=== PATIENT | female | born 2000 | race Caucasian/White ===

== ENCOUNTER → 2023-06-30 09:10 | Outpatient (BNVA) | payer BC, SELFPAY | PROVIDERS: Visit Provider Nurse Practitioner Women's Health | DX: E11.9 Type 2 diabetes mellitus without complications (principal); D68.9 Coagulation defect, unspecified; Z13.220 Encounter for screening for lipoid disorders | CPT/HCPCS: 80061; 83036; 83525; 84146; 84402; 84439; 84443; 84481 ==

== ENCOUNTER → 2023-08-30 10:03 | Outpatient (BNVA) | payer BC, SELFPAY | PROVIDERS: Visit Provider Family Medicine | DX: B08.1 Molluscum contagiosum (principal); Z72.51 High risk heterosexual behavior | CPT/HCPCS: 87806 ==

== ENCOUNTER → 2023-09-01 12:10 | Outpatient (BNVA) | payer BC, SELFPAY | PROVIDERS: PCP Family Medicine; Visit Provider Family Medicine | DX: E11.9 Type 2 diabetes mellitus without complications (principal); B08.1 Molluscum contagiosum | CPT/HCPCS: 80053 ==

== ENCOUNTER → 2023-09-02 10:42 | Outpatient (BNVA) | payer BC, SELFPAY | PROVIDERS: PCP Family Medicine; Visit Provider Physician Assistant | DX: M25.562 Pain in left knee (principal); S83.242A Other tear of medial meniscus, current injury, left knee, initial encounter; X58.XXXA Exposure to other specified factors, initial encounter | CPT/HCPCS: 73560; 73565 ==

== ENCOUNTER 2023-09-27 06:00 | Outpatient (RCR) | payer BC, SELFPAY | END 2023-09-30 23:59 | disposition home or self-care (01) | LOC: MPT 06:00 | PROVIDERS: PCP Family Medicine; Visit Provider Family Medicine | DX: S83.242D Other tear of medial meniscus, current injury, left knee, subsequent encounter (principal); X58.XXXD Exposure to other specified factors, subsequent encounter | CPT/HCPCS: 97161 ==

== ENCOUNTER 2023-10-01 06:00 | Outpatient (RCR) | payer BC, SELFPAY | END 2023-10-31 23:59 | disposition home or self-care (01) | LOC: MPT 06:00 | PROVIDERS: PCP Family Medicine; Visit Provider Family Medicine | DX: S83.242D Other tear of medial meniscus, current injury, left knee, subsequent encounter (principal); X58.XXXD Exposure to other specified factors, subsequent encounter | CPT/HCPCS: 97110; G0283 ==

== ENCOUNTER 2023-10-06 06:56 | Outpatient (CLI) | payer BC, SELFPAY ==
--- NOTE | 2023-10-06 07:15 | MR_ITS ---
WS: [id number] MRI LEFT KNEE NONCONTRAST TECHNIQUE: Axial PD, coronal PD fat sat, coronal PD, sagittal PD, and sagittal PD fat-sat images obta ined. CLINICAL INFORMATION: knee pain COMPARISON: None. FINDINGS: Distal quadriceps and patella tendons are intact. Hypertrophic patella. ACL and PCL are intact. Tiny suprapatellar effusion. Mild chondromalacia patella. Lateral subluxation of the patella likely positi onal. Normal medial and lateral patellar retinaculum. Normal appearing trochlear groove. Small amount of prepatellar soft tissue edema. Medial and lateral collateral ligaments appear intact. Normal popl iteal fossa. No acute appearing meniscal tears. IMPRESSION: 1. ACL and PCL appear intact. 2. Mild chronic thinning of the medial meniscus. No acute appearing meniscal tears. 3. Medial and lateral collateral ligaments appear intact. 4. Mild chondromalacia patella. Small amount of prepatellar soft tissue edema. 5. Tiny suprapatellar effusion. Outbridge grading: grade II: blister-like swelling/fraying of articular cartilage extending to surfac e
== END 2023-10-06 06:57 | disposition home or self-care (01) ==
LOC: RAD 06:57
PROVIDERS: PCP Family Medicine; Visit Provider Physician Assistant
DX: M25.562 Pain in left knee (principal)
CPT/HCPCS: 36415; 73721; 82044; 83036

== ENCOUNTER 2023-10-13 08:47 | Outpatient (CLI) | payer BC, SELFPAY ==
[2023-10-13 09:54] LABS: Alanine Aminotransferase 32 U/L (0-33); Albumin Level 3.8 g/dL (3.5-5.2); Alkaline Phosphatase 56 U/L (35-105); Anion Gap 14.6 (5-19); Aspartate Amino Transferase 17 U/L (0-32); Blood Urea Nitrogen 12 mg/dL (6-20); Carbon Dioxide 24 mmol/L (22-29); Chloride 103 mmol/L (98-107); Chol HDL Ratio 7.82 mg/dL (0.0-4.40); Cholesterol 266 mg/dL (0-200); Globulin 2.9 g/dL (1.3-4.6); Glomerular Filtration Rate 155.7 mL/min (90-130); Glucose 268 mg/dL (65-115); HDL Cholesterol 34 mg/dL (60-100); Osmolality Calculated 293 mOsm/kg (285-295); Potassium 4.6 mmol/L (3.5-5.1); Sodium 137 mmol/L (136-145); Total Bilirubin 0.3 mg/dL (0.15-1.2); Total Protein 6.7 g/dL (6.6-8.7); Triglycerides 651 mg/dL (0-150)
[2023-10-13 10:19] LABS: LDL Cholesterol Direct 121 mg/dL (0-100)
== END 2023-10-13 08:48 | disposition home or self-care (01) ==
LOC: LAB 08:50
PROVIDERS: PCP Family Medicine; Visit Provider Internal Medicine
DX: E11.9 Type 2 diabetes mellitus without complications (principal)
CPT/HCPCS: 36415; 80053; 80061; 83721

== ENCOUNTER → 2024-02-23 15:55 | Outpatient (BNVA) | payer BC, SELFPAY | PROVIDERS: PCP Family Medicine; Visit Provider Family Medicine | DX: R23.8 Other skin changes (principal) | CPT/HCPCS: 88305 ==

== ENCOUNTER → 2024-03-17 09:29 | Outpatient (BNVA) | payer BC, SELFPAY | PROVIDERS: PCP Family Medicine; Visit Provider Physician Assistant | DX: M23.92 Unspecified internal derangement of left knee (principal); M22.42 Chondromalacia patellae, left knee | CPT/HCPCS: 73560; 73565 ==

== ENCOUNTER 2024-07-27 01:45 | Emergency (ER) | payer BC, SELFPAY ==
[2024-07-27] VITALS (9 sets, daily range): BP systolic 104–158; BP diastolic 53–106; PULSE 75–113; RESP 14–18; TEMP 36.7; O2SAT 93–100; BMI 36.0
--- NOTE | 2024-07-27 02:22 | W.ED.ABDPA2 ---
HPI - Abdominal Pain General: Chief Complaint: Abdominal Pain Stated Complaint: ABD Pain to Back Time Seen by Provider: 07/27/24 02:00 History of Present Illness: 24-year-old female presents emergency room with right lower quadrant and right flank pain. This started a few days ago but became much worse tonight. She has had some nausea but no vomiting. She is tearful with pain on presentation. Slightly tachycardic. No known fevers. No chest pain. No shortness of breath. No dysuria. Related Data Date of Last Menstrual Period: 07/18/24 Home Medications Medication Instructions Recorded Confirmed insulin lispro 200 unit/mL (3 mL) 20 unit SUBCUT TID 08/30/23 07/27/24 subcutaneous pen (Humalog KwikPen U-200 Insulin) diphenhydramine HCl 25 mg capsule 25 mg PO TID PRN allergies 07/27/24 07/27/24 (Benadryl) Previous Rx's Medication Instructions Recorded blood-glucose meter,continuous #1 ea 07/02/23 (Dexcom G7 Welding Operator) fenofibrate 150 mg capsule 150 mg PO DAILY #30 caps 07/02/23 icosapent ethyl 1 gram capsule 2 g (2 x 1 gram) PO BID #60 caps 07/02/23 (Vascepa) insulin glargine 100 unit/mL (3 60 unit (0.6 mL) SUBCUT DAILY #18 07/02/23 mL) subcutaneous pen (Lantus mL Solostar U-100 Insulin) pioglitazone 30 mg tablet (Actos) 30 mg PO DAILY #30 tabs 07/02/23 blood-glucose sensor (Dexcom G7 #3 ea 07/12/24 Sensor device) cefdinir 300 mg capsule 300 mg PO BID 10 days #20 caps 07/27/24 diclofenac sodium 50 mg 50 mg PO BID PRN pain #14 tabs 07/27/24 tablet,delayed release ondansetron 8 mg disintegrating 8 mg PO Q6H #14 tabs 07/27/24 tablet Allergies Allergy/AdvReac Type Severity Reaction Status Date / Time No Known Allergies Allergy Verified 07/27/24 01:58 Review of Systems Narrative: Constitutional symptoms: Negative except as documented in HPI. Skin symptoms: Negative except as documented in HPI. Eye symptoms: Negative except as documented in HPI. ENMT symptoms: Negative except as documented in HPI. Respiratory symptoms: Negative except as documented in HPI. Cardiovascular symptoms: Negative except as documented in HPI. Gastrointestinal symptoms: Negative except as documented in HPI. Genitourinary symptoms: Negative except as documented in HPI. Musculoskeletal symptoms: Negative except as documented in HPI. Neurologic symptoms: Negative except as documented in HPI. Psychiatric symptoms: Negative except as documented in HPI. Endocrine symptoms: Negative except as documented in HPI. PFSH ED PFSH: Medical History Type 2 diabetes mellitus Uncontrolled diabetes mellitus Surgical History History of placement of ear tubes History of surgery on arm Family History Grandfather High cholesterol Hypertension Stroke Diabetes Grandmother Hypertension Diabetes Other Thyroid disease Denies family history of Alzheimer's dementia Cervical cancer Liver disease Colon cancer Ovarian cancer CAD (coronary artery disease) Aneurysm Autoimmune disease Clotting disorder Dementia TIA (transient ischemic attack) Heart disease Psychiatric illness Chronic kidney disease (CKD) Breast cancer Anesthesia complication Bleeding disorder Cancer Uterine cancer Social History Smoking and tobacco/nicotine status: never used tobacco/nicotine Alcohol intake: never Substance/Drug Use: never Lives independently: Yes Marital status: Number of children: 0 Current occupational status: employed Current occupation: Palliative Care Nurse [employer] Special pooja needs: No Agree to transfusion: Yes Female Reproductive History: Date of last menstrual period: 07/18/24 Physical Exam Narrative: EXAM NARRATIVE: General: Alert, no acute distress. Skin: Warm, dry. Head: Normocephalic, atraumatic. Neck: Supple, trachea midline. Eye: Extraocular movements are intact. Ears, nose, mouth and throat: Tacky oral mucosa Cardiovascular: Regular, Normal peripheral perfusion. Respiratory: Lungs are clear to auscultation, respirations are non-labored, breath sounds are equal, Symmetrical chest wall expansion. Gastrointestinal: Soft, moderate right lower quadrant and right flank pain, Non distended Musculoskeletal: Normal ROM, no deformity. Neurological: Alert and oriented, No focal neurological deficit observed. Psychiatric: Cooperative, appropriate mood & affect. Course Vital Signs: Vital signs: Vital Signs Temperature 98.1 F 07/27/24 01:55 Pulse Rate 85 07/27/24 08:35 Respiratory Rate 16 07/27/24 06:30 Blood Pressure 111/62 07/27/24 08:35 Pulse Oximetry 99 07/27/24 08:35 Oxygen Delivery Me thod Room Air 07/27/24 04:00 MDM - Abdominal Pain Medical Decision Making Medical decision making: Differential diagnosis for this patient with right lower quadrant abdominal pain including but not limited to and based on the above HPI, review of systems and physical exam: Ureterolithiasis. Urinary tract infection. Appendicitis. colitis. small bowel obstruction. Crohn's flare. Pancreatitis. Cholelithiasis or cholecystitis. Hepatitis. Diverticulitis. Constipation. ovarian cyst. ovarian torsion Workup: Orders were placed to evaluate differential diagnosis based on the above differential, HPI and exam: Lab Review: Laboratory results were reviewed and interpreted by myself the emergency room physician. No leukocytosis. No anemia. No renal failure. Sodium is little low at 132. Urine does not appear very infected. Glucose is elevated at 350. Lactic acid is not elevated. Anion gap is mildly elevated at 21. I reviewed the patient's medical record CT of the abdomen pelvis shows signs of cystitis and ureteritis. There is some concern for a heterogenous appearance of the spleen. An ultrasound was recommended. Reexamination: Patient remained stable. No increased work of breathing. No altered mental status. No focal motor deficits. Assessment and plan: Urinary tract infection Ureteritis Cystitis Hyperglycemia Dehydration ?2 L normal saline bolus, 10 units IV insulin, IV Rocephin, IV Toradol and IV Dilaudid. IV Zofran. -Ultrasound has been ordered to evaluate the spleen. Patient care transitioned to Dr. Miller at shift change. Lab Data 07/27/24 02:20 07/27/24 02:20 Labs/Radiology: Radiology Impressions Abdomen/Pelvis CT 07/27/24 02:50 IMPRESSION: 1. Urinary bladder demonstrates a diffusely thickened bladder wall. This is concerning for acute cystitis. Recommend correlation with urinalysis. 2. The bilateral ureters demonstrate mild prominence, more noticeable distally, with questionable ureteral wall thickening and mild surrounding stranding. In the setting of diffuse urinary bladder wall thickening, this likely represents ascending bilateral ureteritis. 3. 4.5 cm left adnexal cyst. This is likely an incidental finding. 4. Heterogeneous appearance of the spleen, with questionable appearance of numerous hypoechoic masses. This may be secondary to phase of contrast. Recommend further nonemergent evaluation, starting with dedicated ultrasound of the spleen. MRI may subsequently be indicated depending on results. Recommend correlation for point tenderness of the area of the spleen. 5. Liver is enlarged, measuring up to 27.0 cm in craniocaudal dimension. No suspicious hepatic masses. ADDENDUM: 07/27/24 0341 ADDENDUM: THIS REPORT CONTAINS FINDINGS THAT MAY BE CRITICAL TO PATIENT CARE. The findings were verbally communicated via telephone conference with Dr. Magaña at 3:40 AM CDT on 07/27/2024. The findings were acknowledged and understood. Abdomen Ultrasound 07/27/24 05:03 IMPRESSION: 1. Small nonspecific hyperechoic focus within the spleen which may represent hemangioma. Remainder of the spleen without sonographic abnormality. 2. Given the CT and ultrasound findings, correlation with underlying hematologic malignancies and follow-up MRI of the abdomen should be obtained for definitive assessment. Laboratory Results WBC 10.68 10^3/uL (3.29-11.43) 07/27/24 02:20 RBC 5.43 10^6/uL (3.85-5.65) 07/27/24 02:20 Hgb 15.30 g/dL (11.27-16.99) 07/27/24 02:20 Hct 45.3 % (36-47) 07/27/24 02:20 MCV 83.4 fl (85-98) L 07/27/24 02:20 MCH 28.2 pg (27-33) 07/27/24 02:20 MCHC 33.8 g/dL (30-55) 07/27/24 02:20 RDW 12.6 % (12.1-15.1) 07/27/24 02:20 Plt Count 275 10^3/cmm (157-399) 07/27/24 02:20 MPV 10.6 fL (7.4-10.4) H 07/27/24 02:20 Neut % (Auto) 77.4 % 07/27/24 02:20 Lymph % (Auto) 12.5 % 07/27/24 02:20 Harmon % (Auto) 8.7 % 07/27/24 02:20 Eos % (Auto) 0.7 % 07/27/24 02:20 Baso % (Auto) 0.4 % 07/27/24 02:20 Neut # (Auto) 8.27 10^3/uL (1.8-7.7) H 07/27/24 02:20 Lymph # (Auto) 1.3 10^3/uL (0.8-4.8) 07/27/24 02:20 Harmon # (Auto) 0.9 10^3/uL (0.2-0.9) 07/27/24 02:20 Eos # (Auto) 0.1 10^3/uL (0.0-0.8) 07/27/24 02:20 Baso # (Auto) 0.0 10^3/uL (0.0-0.1) 07/27/24 02:20 Nucleated RBC % (auto) 0 % 07/27/24 02:20 Nucleated RBCs # 0.0 /100WBC 07/27/24 02:20 Sodium 132 mmol/L (136-145) L 07/27/24 02:20 Potassium 4.1 mmol/L (3.5-5.1) 07/27/24 02:20 Chloride 94 mmol/L (98-107) L 07/27/24 02:20 Carbon Dioxide 21 mmol/L (22-29) L 07/27/24 02:20 Anion Gap 21.1 (5-19) H 07/27/24 02:20 BUN 15 mg/dL (6-20) 07/27/24 02:20 Creatinine 0.6 mg/dL (0.5-0.9) 07/27/24 02:20 GFR Calculation 125.0 mL/min (90-130) 07/27/24 02:20 Glucose 348 mg/dL (65-115) H 07/27/24 02:20 POC Glucose 319 mg/dL (70-110) H 07/27/24 05:27 Calculated Osmolality 289 mOsm/kg (285-295) 07/27/24 02:20 Lactic Acid 1.2 mmol/L (0.5-2.2) 07/27/24 02:20 Calcium 9.0 mg/dL (8.5-10.5) 07/27/24 02:20 Total Bilirubin 0.4 mg/dL (0.15-1.2) 07/27/24 02:20 AST 10 U/L (0-32) 07/27/24 02:20 ALT 16 U/L (0-33) 07/27/24 02:20 Alkaline Phosphatase 77 U/L (35-105) 07/27/24 02:20 C-Reactive Protein 31.7 mg/L (0.0-4.9) H 07/27/24 02:20 Total Protein 7.8 g/dL (6.6-8.7) 07/27/24 02:20 Albumin 4.2 g/dL (3.5-5.2) 07/27/24 02:20 Globulin 3.6 g/dL (1.3-4.6) 07/27/24 02:20 HCG, Qual Negative (Negative) 07/27/24 02:20 Urine Color Yellow (Yellow) 07/27/24 02:30 Urine Appearance Cloudy (CLEAR) A 07/27/24 02:30 Urine pH 5.0 (5-7) 07/27/24 02:30 Ur Specific [place] 1.034 (1.005-1.030) H 07/27/24 02:30 Urine Protein 2+ (Negative) A 07/27/24 02:30 Urine Glucose (UA) 3+ (Normal) H 07/27/24 02:30 Urine Ketones 3+ (Negative) H 07/27/24 02:30 Urine Blood 3+ (Negative) A 07/27/24 02:30 Urine Nitrate Positive (Negative) A 07/27/24 02:30 Urine Bilirubin Negative (Negative) 07/27/24 02:30 Urine Urobilinogen 0.2 mg/dL (Negative) 07/27/24 02:30 Ur Leukocyte Esterase 2+ (Negative) A 07/27/24 02:30 Urine RBC 51-100 /hpf (0-2) H 07/27/24 02:30 Urine WBC >100 /hpf (0-5) H 07/27/24 02:30 Ur Squamous Epith Cells 0-5 /hpf (0-5) 07/27/24 02:30 Amorphous Sediment Not Reportable 07/27/24 02:30 Urine Bacteria 1+ /hpf (NONE) H 07/27/24 02:30 Hyaline Casts 1.65 /lpf 07/27/24 02:30 All radiology interpretation(s) finalized by discharge Discharge Plan Discharge Patient Disposition: Home Clinical Impression: Urinary tract infection, Dehydration Condition: Stable Prescriptions: New ondansetron 8 mg tablet,disintegrating 8 mg PO Q6H Qty: 14 0RF Rx Instructions: Take 1/2-1 tab every 6 hours as needed for nausea and vomiting diclofenac sodium 50 mg tablet,delayed release (DR/EC) 50 mg PO BID PRN (Reason: pain) Qty: 14 0RF cefdinir 300 mg capsule 300 mg PO BID 10 Days Qty: 20 0RF No Action fenofibrate 150 mg capsule 150 mg PO DAILY Qty: 30 2RF icosapent ethyl [Vascepa] 1 gram capsule 2 g PO BID Qty: 60 2RF pioglitazone [Actos] 30 mg tablet 30 mg PO DAILY Qty: 30 2RF insulin glargine [Lantus Solostar U-100 Insulin] 100 unit/mL (3 mL) insulin pen 60 unit SUBCUT DAILY Qty: 18 0RF (DME) Dexcom G7 Welding Operator Misc See Rx Instructions .ROUTE .MEDSUPPLY Qty: 1 0RF Rx Instructions: As directed Humalog KwikPen Insulin 200 unit/mL (3 mL) insulin pen 20 unit SUBCUT TID (DME) Dexcom G7 Sensor Device See Rx Instructions .ROUTE .MEDSUPPLY Qty: 3 2RF Rx Instructions: As directed Benadryl 25 mg Capsule 25 mg PO TID PRN (Reason: allergies) Discharge Orders: Discharge ED (Routine); Ordered 07/27/24 Ordered By: Sina Marie Referrals: Luis Moreno MD [Primary Care Provider] - Discharge Diet: Usual diet Discharge Activity: Increase activity as tolerated Patient Instructions: Urinary Tract Infection in Women (ED) Activity Restrictions/Additional Instructions: Thank you for choosing [facility] for your healthcare needs today. Please realize this is an emergency room and that we are providing you with a medical screening exam and this may not be complete and all inclusive of all the testing and or work up that you may need to determine your ailment or severity of your illness. You have been screened and evaluated and felt safe for discharge. Health conditions do change or evolve sometimes and as such it is important that you follow up with your Primary Doctor to be re checked, 3-5 days is a general good time frame for follow up. You are always welcome to return to the ED for re assessment if your symptoms are worsening or you have new concerns There was a questionable abnormal area on the CT of the spleen. Ultrasound shows what appears to be a hemangioma. You should follow-up with your primary care physician for review of this finding and discussion if further evaluation is needed. Coding Level of Care Code ED Pricing Director for Addi Conley
[2024-07-27] MEDS: sodium chloride 0.9% 1,000 ML 999 ML IV ×2 (02:25→05:19)
[2024-07-27] MEDS: ketorolac 30 mg/mL INJ IVP (02:25)
[2024-07-27] MEDS: ondansetron 2 mg/ML SDV 2 mL 8 MG IVP (02:25)
[2024-07-27 02:27] LABS: Basophils % 0.4 %; Eosinophils # 0.1 10^3/uL (0.0-0.8); Eosinophils % 0.7 %; Hematocrit 45.3 % (36-47); Lymphocytes # 1.3 10^3/uL (0.8-4.8); Lymphocytes % 12.5 %; Mean Corpuscular HGB Conc 33.8 g/dL (30-55); Mean Corpuscular Hemoglobin 28.2 pg (27-33); Mean Corpuscular Volume 83.4 fl (85-98); Mean Platelet Volume 10.6 fL (7.4-10.4); Monocytes # 0.9 10^3/uL (0.2-0.9); Monocytes % 8.7 %; Neutrophils # 8.27 10^3/uL (1.8-7.7); Neutrophils % 77.4 %; Nucleated Red Blood Cells % 0 %; Platelet Count 275 10^3/cmm (157-399); Red Blood Count 5.43 10^6/uL (3.85-5.65); Red Cell Distribution Width 12.6 % (12.1-15.1); White Blood Count 10.68 10^3/uL (3.29-11.43)
[2024-07-27 02:33] LABS: Bilirubin Urine Negative (Negative); Blood Urine 3+ (Negative); Glucose Urine UA 3+ (Normal); Ketones Urine 3+ (Negative); Leukocyte Esterase Urine 2+ (Negative); Nitrate Urine Positive (Negative); Protein Urine 2+ (Negative); Urine Appearance Cloudy (CLEAR); Urine Color Yellow (Yellow); Urobilinogen Urine 0.2 mg/dL (Negative)
[2024-07-27 02:38] LABS: Bacteria Urine 1+ /hpf; Hyaline Casts Urine 1.65 /lpf; RBC Urine 51-100 /hpf (0-2); Squamous Epithelial Cell Urine 0-5 /hpf (0-5); WBC Urine >100 /hpf (0-5)
[2024-07-27 02:40] LABS: HCG, Serum Qual Negative (Negative)
[2024-07-27 02:49] LABS: Alanine Aminotransferase 16 U/L (0-33); Albumin Level 4.2 g/dL (3.5-5.2); Alkaline Phosphatase 77 U/L (35-105); Anion Gap 21.1 (5-19); Aspartate Amino Transferase 10 U/L (0-32); Blood Urea Nitrogen 15 mg/dL (6-20); C Reactive Protein 31.7 mg/L (0.0-4.9); Carbon Dioxide 21 mmol/L (22-29); Chloride 94 mmol/L (98-107); Creatinine Clr Calc Pharmacy 182.7002; Globulin 3.6 g/dL (1.3-4.6); Glucose 348 mg/dL (65-115); Osmolality Calculated 289 mOsm/kg (285-295); Potassium 4.1 mmol/L (3.5-5.1); Sodium 132 mmol/L (136-145); Total Bilirubin 0.4 mg/dL (0.15-1.2); Total Protein 7.8 g/dL (6.6-8.7)
[2024-07-27 02:50] LABS: Lactic Sepsis W/Reflex 1.2 mmol/L (0.5-2.2)
--- NOTE | 2024-07-27 02:50 | CTR_ITS ---
PROCEDURE INFORMATION: Exam: CT Abdomen And Pelvis With Contrast Exam date and time: 07/27/2024 3:04 AM Age: 24 years old Clinical indication: Abdominal pain; Additional info: Rlq abdominal pain TECHNIQUE: Imaging protocol: Computed tomography of the abdomen and pelvis with contrast. Radiation optimization: All CT scans at this facility use at least one of these dose optimization techniques: automated exposure control; mA and/or kV adjustment per patient size (includes targeted exams where dose is matched to clinical indication); or iterative reconstruction. Contrast material: OMNI 350; Contrast volume: 100 ml; Contrast route: INTRAVENOUS (IV); COMPARISON: No relevant prior studies available. RADIATION DOSE METRICS: Total DLP (mGy-cm): 1002.16 FINDINGS: Lungs: Visualized lung bases are clear. Liver: Mild focal fatty infiltration of the liver about the falciform ligament. Liver is enlarged, measuring up to 27.0 cm in craniocaudal dimension. No suspicious hepatic masses. Gallbladder and biliary ducts: The gallbladder is unremarkable. No biliary ductal dilatation. Pancreas: The pancreas is unremarkable. Spleen: Heterogeneous appearance of the spleen, with questionable appearance of numerous hypoechoic masses. Adrenal glands: The adrenal glands are unremarkable. Kidneys and ureters: Kidneys are normal in appearance. No hydronephrosis. No evidence of renal stones. The bilateral ureters demonstrate mild prominence, more noticeable distally, with questionable ureteral wall thickening and mild surrounding stranding. Stomach and bowel: Nonobstructive bowel-gas pattern. Appendix: The appendix is normal. Intraperitoneal space: No significant free fluid in the abdomen or pelvis. Vasculature: Abdominal aorta and its major branches are within normal limits. Lymph nodes: No distinct pathologically enlarged lymphadenopathy. Urinary bladder: Urinary bladder demonstrates a diffusely thickened bladder wall. Reproductive: 4.5 cm left adnexal cyst. Bones/joints: No acute osseous findings. Soft tissues: Visualized superficial soft tissues are within normal limits. CT/CT abdomen pelvis w con* [id number] IMPRESSION: 1. Urinary bladder demonstrates a diffusely thickened bladder wall. This is concerning for acute cystitis. Recommend correlation with urinalysis. 2. The bilateral ureters demonstrate mild prominence, more noticeable distally, with questionable ureteral wall thickening and mild surrounding stranding. In the setting of diffuse urinary bladder wall thickening, this likely represents ascending bilateral ureteritis. 3. 4.5 cm left adnexal cyst. This is likely an incidental finding. 4. Heterogeneous appearance of the spleen, with questionable appearance of numerous hypoechoic masses. This may be secondary to phase of contrast. Recommend further nonemergent evaluation, starting with dedicated ultrasound of the spleen. MRI may subsequently be indicated depending on results. Recommend correlation for point tenderness of the area of the spleen. 5. Liver is enlarged, measuring up to 27.0 cm in craniocaudal dimension. No suspicious hepatic masses.
[2024-07-27 02:58] LABS: Specific Gravity, Urine 1.034 (1.005-1.030)
[2024-07-27 02:59] LABS: Add Urine Culture? Yes
[2024-07-27] MEDS: iohexol 350 mg/mL 500 mL Btl (per mL) IV (03:08)
[2024-07-27] MEDS: cefTRIAXone 1,000 mg SDV 1000 MG IVP (03:17)
[2024-07-27] MEDS: HYDROmorphone 1 mg/mL INJ 1 mL IVP (03:27)
--- NOTE | 2024-07-27 05:03 | USR_ITS ---
PROCEDURE INFORMATION: Exam: US Abdomen; Limited Exam date and time: 07/27/2024 5:22 AM Age: 24 years old Clinical indication: Abnormal findings; Abnormal radiologic finding of the abdomen; Radiologic exam and body structure: See CT; Patient HX: Came in for rlq pain; Additional info: Spleenic abnormality TECHNIQUE: Imaging protocol: Real time ultrasound of the abdomen with image documentation. Limited exam focused on the region of clinical interest. COMPARISON: CT abdomen pelvis w con* [id number] 07/27/2024 3:04 AM FINDINGS: Spleen: Small hyperechoic focus within the spleen is noted which measures 1.2 x 1.2 x 1.2 cm. Remainder of the spleen without sonographic abnormality. US/US abdomen limited [id number] IMPRESSION: 1. Small nonspecific hyperechoic focus within the spleen which may represent hemangioma. Remainder of the spleen without sonographic abnormality. 2. Given the CT and ultrasound findings, correlation with underlying hematologic malignancies and follow-up MRI of the abdomen should be obtained for definitive assessment.
[2024-07-27] MEDS: insulin regular-human 100 units/1 mL 10 UNIT IVP (05:19)
--- NOTE | 2024-07-27 07:42 | PC.PHAR ---
Patient states she is taking jardiance maybe once a week I'm unable to locate prescription or strength .
[2024-07-27 07:51] LABS: Glucose Point of Care 319 mg/dL (70-110)
== END 2024-07-27 08:37 | disposition home or self-care (01) ==
PROVIDERS: Emergency Medicine; Emergency Provider Family Medicine; PCP Family Medicine
DX: N39.0 Urinary tract infection, site not specified (principal); E86.0 Dehydration; Z79.4 Long term (current) use of insulin; E11.9 Type 2 diabetes mellitus without complications
CPT/HCPCS: 36416; 74177; 76705; 80053; 81001; 82962; 83605; 84703; 85025; 86140; 87077; 87086; 87186; 96361; 96374; 96375; 99285; J0696; J1170; J1815; J1885; J2405; J7030

== ENCOUNTER 2024-08-15 02:49 | Emergency (ER) | payer BC, SELFPAY ==
[2024-08-15] VITALS (10 sets, daily range): BP systolic 117–132; BP diastolic 61–92; PULSE 86–97; RESP 12–20; TEMP 36.7; O2SAT 93–99; BMI 33.8
--- NOTE | 2024-08-15 03:01 | W.ED.ALLEREA ---
HPI - Allergic Reaction General: Chief complaint: Allergic Reaction Stated complaint: allergic reaction Time Seen by Provider: 08/15/24 02:53 History of Present Illness: HPI narrative: 24-year-old female with history of type 2 diabetes and obesity who presents emergency room after waking with a allergic reaction. She presents by ambulance. She received Solu-Medrol and Benadryl and Zofran on the ambulance. Feeling of throat swelling and rash has improved. She is complaining of some lower abdominal pain. She also has not been taking her insulin. She says she cannot afford it. Blood glucose was elevated in the 400s. No altered mental status. No increased work of breathing. Related Data Home Medications Medication Instructions Recorded Confirmed insulin lispro 200 unit/mL (3 mL) 20 unit SUBCUT TID 08/30/23 07/27/24 subcutaneous pen (Humalog KwikPen U-200 Insulin) diphenhydramine HCl 25 mg capsule 25 mg PO TID PRN allergies 07/27/24 07/27/24 (Benadryl) Previous Rx's Medication Instructions Recorded blood-glucose meter,continuous #1 ea 07/02/23 (Dexcom G7 Glost Tile Sorter) fenofibrate 150 mg capsule 150 mg PO DAILY #30 caps 07/02/23 icosapent ethyl 1 gram capsule 2 g (2 x 1 gram) PO BID #60 caps 07/02/23 (Vascepa) insulin glargine 100 unit/mL (3 60 unit (0.6 mL) SUBCUT DAILY #18 07/02/23 mL) subcutaneous pen (Lantus mL Solostar U-100 Insulin) pioglitazone 30 mg tablet (Actos) 30 mg PO DAILY #30 tabs 07/02/23 blood-glucose sensor (Dexcom G7 #3 ea 07/12/24 Sensor device) diclofenac sodium 50 mg 50 mg PO BID PRN pain #14 tabs 07/27/24 tablet,delayed release ondansetron 8 mg disintegrating 8 mg PO Q6H #14 tabs 07/27/24 tablet hydroxyzine pamoate 50 mg capsule 50 mg PO BID 5 days #10 caps 08/15/24 Allergies Allergy/AdvReac Type Severity Reaction Status Date / Time No Known Allergies Allergy Verified 08/15/24 02:56 Review of Systems Narrative: Constitutional symptoms: Negative except as documented in HPI. Skin symptoms: Negative except as documented in HPI. Eye symptoms: Negative except as documented in HPI. ENMT symptoms: Negative except as documented in HPI. Respiratory symptoms: Negative except as documented in HPI. Cardiovascular symptoms: Negative except as documented in HPI. Gastrointestinal symptoms: Negative except as documented in HPI. Genitourinary symptoms: Negative except as documented in HPI. Musculoskeletal symptoms: Negative except as documented in HPI. Neurologic symptoms: Negative except as documented in HPI. Psychiatric symptoms: Negative except as documented in HPI. Endocrine symptoms: Negative except as documented in HPI. PFSH ED PFSH: Medical History Type 2 diabetes mellitus Uncontrolled diabetes mellitus Surgical History History of placement of ear tubes History of surgery on arm Family History Grandfather High cholesterol Hypertension Stroke Diabetes Grandmother Hypertension Diabetes Other Thyroid disease Denies family history of Alzheimer's dementia Cervical cancer Liver disease Colon cancer Ovarian cancer CAD (coronary artery disease) Aneurysm Autoimmune disease Clotting disorder Dementia TIA (transient ischemic attack) Heart disease Psychiatric illness Chronic kidney disease (CKD) Breast cancer Anesthesia complication Bleeding disorder Cancer Uterine cancer Social History Smoking and tobacco/nicotine status: never used tobacco/nicotine Alcohol intake: never Substance/Drug Use: never Lives independently: Yes Marital status: Number of children: 0 Current occupational status: employed Current occupation: [employer] Worker [employer] Special pooja needs: No Agree to transfusion: Yes Female Reproductive History: Date of last menstrual period: 08/09/24 Physical Exam Narrative: EXAM NARRATIVE: General: Alert, no acute distress. Skin: Warm, dry. Head: Normocephalic, atraumatic. Neck: Supple, trachea midline. Eye: Extraocular movements are intact. Ears, nose, mouth and throat: Tacky oral mucosa Cardiovascular: Regular, Normal peripheral perfusion. Respiratory: Lungs are clear to auscultation, respirations are non-labored, breath sounds are equal, Symmetrical chest wall expansion. Gastrointestinal: Soft, Nontender, Non distended Musculoskeletal: Normal ROM, no deformity. Neurological: Alert and oriented, No focal neurological deficit observed. Psychiatric: Cooperative, appropriate mood & affect. Course Vital Signs: Vital signs: Vital Signs Temperature 98.0 F 08/15/24 02:51 Pulse Rate 92 08/15/24 03:30 Respiratory Rate 12 08/15/24 03:26 Blood Pressure 129/73 08/15/24 03:30 Pulse Oximetry 97 08/15/24 03:30 Oxygen Delivery Me thod Room Air 08/15/24 03:30 MDM - Allergic Reaction Medical Decision Making Medical decision making: Differential diagnosis including but not limited to and based on the above HPI, review of systems and physical exam: In a patient with complaints of allergic reaction have concern for anaphylaxis, medication reactions and viral reactions. Orders placed to evaluate differential diagnosis based on the above differential, HPI and physical exam Lab Review: Laboratory results were reviewed and interpreted by myself the emergency room physician. No leukocytosis. No anemia. No renal failure. Blood glucose is 515. Glucometer on discharge is under 300 280s. Patient has ketones which believe is more from dehydration. She is not acidotic. I reviewed the patient's medical record. Reexamination: Patient remained stable. No increased work of breathing. No altered mental status. No focal motor deficits. No further urticaria. No trouble breathing. No altered mental status. Assessment and plan: Urticaria Hyperglycemia Medical noncompliance Poorly controlled diabetes Dehydration ? Normal saline bolus. Patient received Solu-Medrol and Benadryl on the ambulance. 15 units IV insulin. - Discharged home - Discussed plan with patient. Answered any questions. - Evaluation and treatment of this problem were appropriate in the emergency setting. Lab Data 08/15/24 03:00 08/15/24 03:00 Laboratory Results WBC 6.04 10^3/uL (3.29-11.43) 08/15/24 03:00 RBC 4.87 10^6/uL (3.85-5.65) 08/15/24 03:00 Hgb 14.20 g/dL (11.27-16.99) 08/15/24 03:00 Hct 40.5 % (36-47) 08/15/24 03:00 MCV 83.2 fl (85-98) L 08/15/24 03:00 MCH 29.2 pg (27-33) 08/15/24 03:00 MCHC 35.1 g/dL (30-55) 08/15/24 03:00 RDW 12.4 % (12.1-15.1) 08/15/24 03:00 Plt Count 270 10^3/cmm (157-399) 08/15/24 03:00 MPV 11.0 fL (7.4-10.4) H 08/15/24 03:00 Neut % (Auto) 50.8 % 08/15/24 03:00 Lymph % (Auto) 37.3 % 08/15/24 03:00 [place] % (Auto) 9.1 % 08/15/24 03:00 Eos % (Auto) 1.8 % 08/15/24 03:00 Baso % (Auto) 0.3 % 08/15/24 03:00 Neut # (Auto) 3.07 10^3/uL (1.8-7.7) 08/15/24 03:00 Lymph # (Auto) 2.3 10^3/uL (0.8-4.8) 08/15/24 03:00 [place] # (Auto) 0.6 10^3/uL (0.2-0.9) 08/15/24 03:00 Eos # (Auto) 0.1 10^3/uL (0.0-0.8) 08/15/24 03:00 Baso # (Auto) 0.0 10^3/uL (0.0-0.1) 08/15/24 03:00 Nucleated RBC % (auto) 0 % 08/15/24 03:00 Nucleated RBCs # 0.0 /100WBC 08/15/24 03:00 Sodium 149 mmol/L (136-145) H 08/15/24 03:00 Potassium 4.6 mmol/L (3.5-5.1) 08/15/24 03:00 Chloride 107 mmol/L (98-107) 08/15/24 03:00 Carbon Dioxide 22 mmol/L (22-29) 08/15/24 03:00 Anion Gap 24.6 (5-19) H 08/15/24 03:00 BUN 17 mg/dL (6-20) 08/15/24 03:00 Creatinine 0.7 mg/dL (0.5-0.9) 08/15/24 03:00 GFR Calculation 104.6 mL/min (90-130) 08/15/24 03:00 Glucose 515 mg/dL (65-115) H* 08/15/24 03:00 POC Glucose 283 mg/dL (70-110) H 08/15/24 04:40 Calculated Osmolality 333 mOsm/kg (285-295) H 08/15/24 03:00 Calcium 9.3 mg/dL (8.5-10.5) 08/15/24 03:00 Total Bilirubin 0.2 mg/dL (0.15-1.2) 08/15/24 03:00 AST 16 U/L (0-32) 08/15/24 03:00 ALT 21 U/L (0-33) 08/15/24 03:00 Alkaline Phosphatase 75 U/L (35-105) 08/15/24 03:00 Total Protein 7.6 g/dL (6.6-8.7) 08/15/24 03:00 Albumin 4.4 g/dL (3.5-5.2) 08/15/24 03:00 Globulin 3.2 g/dL (1.3-4.6) 08/15/24 03:00 Lipase 29 U/L (13-60) 08/15/24 03:00 Urine Color Yellow (Yellow) 08/15/24 03:18 Urine Appearance Clear (CLEAR) 08/15/24 03:18 Urine pH 5.0 (5-7) 08/15/24 03:18 Ur Specific [place] 1.038 (1.005-1.030) H 08/15/24 03:18 Urine Protein Negative (Negative) 08/15/24 03:18 Urine Glucose (UA) 3+ (Normal) H 08/15/24 03:18 Urine Ketones 2+ (Negative) H 08/15/24 03:18 Urine Blood 1+ (Negative) A 08/15/24 03:18 Urine Nitrate Negative (Negative) 08/15/24 03:18 Urine Bilirubin Negative (Negative) 08/15/24 03:18 Urine Urobilinogen 0.2 mg/dL (Negative) 08/15/24 03:18 Ur Leukocyte Esterase Negative (Negative) 08/15/24 03:18 Urine RBC 0-2 /hpf (0-2) 08/15/24 03:18 Urine WBC 0-5 /hpf (0-5) 08/15/24 03:18 Ur Squamous Epith Cells 0-5 /hpf (0-5) 08/15/24 03:18 Amorphous Sediment Not Reportable 08/15/24 03:18 Urine Bacteria None seen /hpf (NONE) 08/15/24 03:18 Hyaline Casts 0-4 /lpf H 08/15/24 03:18 Serum Ketones Positive (Negative) H 08/15/24 03:00 No radiology studies performed this visit Discharge Plan Discharge Patient Disposition: Home Clinical Impression: Urticaria, Hyperglycemia, Dehydration Uncontrolled diabetes mellitus Qualifiers: Diabetes mellitus type: type 2 Glycemic state: with hypoglycemia Coma presence: without coma Qualified Code(s): E11.649 - Type 2 diabetes mellitus with hypoglycemia without coma Condition: Stable Prescriptions: New hydroxyzine pamoate 50 mg capsule 50 mg PO BID 5 Days Qty: 10 0RF No Action fenofibrate 150 mg capsule 150 mg PO DAILY Qty: 30 2RF icosapent ethyl [Vascepa] 1 gram capsule 2 g PO BID Qty: 60 2RF pioglitazone [Actos] 30 mg tablet 30 mg PO DAILY Qty: 30 2RF insulin glargine [Lantus Solostar U-100 Insulin] 100 unit/mL (3 mL) insulin pen 60 unit SUBCUT DAILY Qty: 18 0RF (DME) Dexcom G7 Glost Tile Sorter Misc See Rx Instructions .ROUTE .MEDSUPPLY Qty: 1 0RF Rx Instructions: As directed Humalog KwikPen Insulin 200 unit/mL (3 mL) insulin pen 20 unit SUBCUT TID (DME) Dexcom G7 Sensor Device See Rx Instructions .ROUTE .MEDSUPPLY Qty: 3 2RF Rx Instructions: As directed ondansetron 8 mg tablet,disintegrating 8 mg PO Q6H Qty: 14 0RF Rx Instructions: Take 1/2-1 tab every 6 hours as needed for nausea and vomiting diclofenac sodium 50 mg tablet,delayed release (DR/EC) 50 mg PO BID PRN (Reason: pain) Qty: 14 0RF Benadryl 25 mg Capsule 25 mg PO TID PRN (Reason: allergies) Discharge Orders: Discharge ED (Routine); Ordered 08/15/24 Ordered By: Antonina Magaña Referrals: Luis Moreno MD [Primary Care Provider] - Discharge Diet: Usual diet Discharge Activity: Increase activity as tolerated Patient Instructions: Urticaria (ED), Diabetic Hyperglycemia (ED) Activity Restrictions/Additional Instructions: [facility]. Please realize this is an emergency room and that we are providing you with a medical screening exam and this may not be complete and all inclusive of all the testing and or work up that you may need to determine your ailment or severity of your illness. You have been screened and evaluated and felt safe for discharge. Health conditions do change or evolve sometimes and as such it is important that you follow up with your Primary Doctor to be re checked, 3-5 days is a general good time frame for follow up. You are always welcome to return to the ED for re assessment if your symptoms are worsening or you have new concerns Coding Level of Care Code ED Computational Chemist for Addi Conley
[2024-08-15 03:05] LABS: Basophils % 0.3 %; Eosinophils # 0.1 10^3/uL (0.0-0.8); Eosinophils % 1.8 %; Hematocrit 40.5 % (36-47); Lymphocytes # 2.3 10^3/uL (0.8-4.8); Lymphocytes % 37.3 %; Mean Corpuscular HGB Conc 35.1 g/dL (30-55); Mean Corpuscular Hemoglobin 29.2 pg (27-33); Mean Corpuscular Volume 83.2 fl (85-98); Monocytes # 0.6 10^3/uL (0.2-0.9); Monocytes % 9.1 %; Neutrophils # 3.07 10^3/uL (1.8-7.7); Neutrophils % 50.8 %; Nucleated Red Blood Cells % 0 %; Platelet Count 270 10^3/cmm (157-399); Red Blood Count 4.87 10^6/uL (3.85-5.65); Red Cell Distribution Width 12.4 % (12.1-15.1); White Blood Count 6.04 10^3/uL (3.29-11.43)
[2024-08-15 03:25] LABS: Bilirubin Urine Negative (Negative); Blood Urine 1+ (Negative); Glucose Urine UA 3+ (Normal); Ketones Urine 2+ (Negative); Leukocyte Esterase Urine Negative (Negative); Nitrate Urine Negative (Negative); Protein Urine Negative (Negative); Urine Appearance Clear (CLEAR); Urine Color Yellow (Yellow); Urobilinogen Urine 0.2 mg/dL (Negative)
[2024-08-15] MEDS: insulin regular-human 100 units/1 mL 15 UNIT IVP (03:27)
[2024-08-15] MEDS: sodium chloride 0.9% 1,000 ML 999 ML IV (03:27)
[2024-08-15 03:30] LABS: Bacteria Urine None Seen /hpf; Hyaline Casts Urine 0-4 /lpf; RBC Urine 0-2 /hpf (0-2); Squamous Epithelial Cell Urine 0-5 /hpf (0-5); WBC Urine 0-5 /hpf (0-5)
[2024-08-15 03:36] LABS: Ketone (Acetest) Serum Positive (Negative)
[2024-08-15 03:37] LABS: Glucose Point of Care 489 mg/dL (70-110)
[2024-08-15 03:46] LABS: Specific Gravity, Urine 1.038 (1.005-1.030)
[2024-08-15 03:51] LABS: Alanine Aminotransferase 21 U/L (0-33); Albumin Level 4.4 g/dL (3.5-5.2); Alkaline Phosphatase 75 U/L (35-105); Blood Urea Nitrogen 17 mg/dL (6-20); Calcium 9.3 mg/dL (8.5-10.5); Carbon Dioxide 22 mmol/L (22-29); Chloride 107 mmol/L (98-107); Creatinine Clr Calc Pharmacy 151.5453; Globulin 3.2 g/dL (1.3-4.6); Glomerular Filtration Rate 104.6 mL/min (90-130); Lipase 29 U/L (13-60); Osmolality Calculated 333 mOsm/kg (285-295); Total Bilirubin 0.2 mg/dL (0.15-1.2); Total Protein 7.6 g/dL (6.6-8.7)
[2024-08-15 03:52] LABS: Anion Gap 24.6 (5-19); Aspartate Amino Transferase 16 U/L (0-32); Potassium 4.6 mmol/L (3.5-5.1)
[2024-08-15 03:54] LABS: Sodium 149 mmol/L (136-145)
[2024-08-15 03:56] LABS: Glucose 515 mg/dL (65-115)
[2024-08-15 04:26] LABS: ABG PCO2 36.9 mmHg (35-45); ABG PH Result 7.37 (7.35-7.45); Arterial Blood Gas Hematocrit 40.6 % (37-47); Base Excess ABG -3.2 mmol/L (-2.0-2.0); Blood Gas Allen Test Pos; Blood Gas Operator Identificat ED; Blood Gas Sample Site Radial, right; Blood Gas Sample Type Arterial; Carboxyhemoglobin 0.9 %THgb (0.4-20.1); HCO3 ABG 21.5 mmol/L (22-26); HGB O2 Sat 96.1 % (95-100); Ionized Calcium Level - ABG 1.2 mmol/L (1.1-1.4); Methemoglobin 1.6 % (0.4-1.5); Oxygen Device ROOM AIR; Oxygen Saturation ABG 98.6; PO2 FiO2 Ratio Arterial Blood 490; Potassium Level - ABG 3.6 mmol/L (3.5-5.0); Total Hemoglobin 13.2 g/dL (12-16)
[2024-08-15 04:44] LABS: Glucose Point of Care 283 mg/dL (70-110)
== END 2024-08-15 06:24 | disposition home or self-care (01) ==
PROVIDERS: Emergency Provider Emergency Medicine; PCP Family Medicine
DX: L50.9 Urticaria, unspecified (principal); E86.0 Dehydration; E11.65 Type 2 diabetes mellitus with hyperglycemia; Z79.4 Long term (current) use of insulin; Z91.141 Patient's other noncompliance with medication regimen due to financial hardship
CPT/HCPCS: 36416; 36600; 80051; 80053; 81001; 82009; 82330; 82805; 82962; 83690; 85025; 96372; 96374; 99285; J1815; J7030

== ENCOUNTER → 2024-10-12 08:17 | Day surgery (SDC) | payer BC, SELFPAY ==
[2024-10-12 09:10] LABS: Glucose Point of Care 412 mg/dL (70-110)
[2024-10-12 09:10] LABS: Glucose Point of Care 421 mg/dL (70-110)
[2024-10-12 09:13] VITALS: BP 150/95; PULSE 97; RESP 18; TEMP 36.3; O2SAT 98; BMI 33.8
[2024-10-12] MEDS: sodium chloride 0.9% 1,000 ML 30 ML IV (09:17)
[2024-10-12] MEDS: acetaminophen 1,000 MG/100 ML PIGGYBACK 400 MG IV (09:17)
[2024-10-12] MEDS: ketorolac 30 mg/mL INJ IVP (09:17)
[2024-10-12] MEDS: scopolamine 1.5 Patch 1 PATCH TRANSDERMA (09:17)
--- NOTE | 2024-10-12 09:54 | P.MISC_ITS ---
Miscellaneous Note Purpose of Documentation: Orthopedic note update: Patient is a 24-year-old female who is planned to proceed with left knee diagnostic and surgical arthroscopy with possible medial plica excision. Today on her preoperative workup her blood glucose was 412. Review of history shows poorly controlled diabetic. At this point time with sugars being this high we talked about high risks of infection and at this point time she would benefit from further preoperative workup given this is a nonemergent procedure. This was seen evaluate by anesthesia and agreeance with this as well educated patient on following up with her clinical review specialist. Patient understands and agrees with current plan. All questions have been answered at this time we will postpone her surgery at this time for further and better workup of her uncontrolled diabetes with plan to get her blood glucose better under control. We will have the office send a note to her clinical review specialist with recommendation for office visit. Once again patient understands and agrees with current plan. All questions answered. Fransisco Parrish, DO Orthopedic surgery
--- NOTE | 2024-10-12 10:02 | SUR.PREOP ---
Patient surgery cancelled due to blood sugar of 412. Patient left ambulatory with .
== END | disposition home or self-care (01) ==
PROVIDERS: PCP Family Medicine; Visit Provider Student in an Organized Health Care Education/Training Program
PROC: (CPT 29870; principal; 2024-10-12 09:55)
DX: Z53.8 Procedure and treatment not carried out for other reasons (principal)
CPT/HCPCS: 36416; 82962; J0131; J1100; J1885; J2250; J2405; J2704; J3010; J7030

== ENCOUNTER → 2025-07-05 11:23 | Outpatient (BNVA) | payer BC, SELFPAY | PROVIDERS: PCP Family Medicine; Visit Provider Family Medicine | DX: E11.9 Type 2 diabetes mellitus without complications (principal) | CPT/HCPCS: 80053; 80061; 83036; 83721; 84439; 84443; 85025 ==

== ENCOUNTER → 2025-07-06 13:01 | Outpatient (BNVA) | payer BC, SELFPAY | PROVIDERS: PCP Family Medicine; Visit Provider Internal Medicine | DX: E11.649 Type 2 diabetes mellitus with hypoglycemia without coma (principal); E78.1 Pure hyperglyceridemia | CPT/HCPCS: 36415; 80053; 84681; 86337; 86341 ==

== ENCOUNTER → 2025-07-18 13:45 | Outpatient (BNVA) | payer BC, SELFPAY | PROVIDERS: PCP Family Medicine; Visit Provider Student in an Organized Health Care Education/Training Program | DX: M25.561 Pain in right knee (principal); M25.562 Pain in left knee; M67.52 Plica syndrome, left knee; M22.42 Chondromalacia patellae, left knee; M23.92 Unspecified internal derangement of left knee | CPT/HCPCS: 73560; 73565 ==

== ENCOUNTER → 2025-10-23 10:55 | Outpatient (BNVA) | payer BC, SELFPAY | PROVIDERS: PCP Family Medicine; Visit Provider Internal Medicine Endocrinology, Diabetes & Metabolism | DX: E78.1 Pure hyperglyceridemia (principal); E11.649 Type 2 diabetes mellitus with hypoglycemia without coma | CPT/HCPCS: 36415; 80053; 80061; 82044; 83036 ==